=== PATIENT | female | born 1975 | race Caucasian/White ===

== ENCOUNTER 2022-01-05 13:00 | Outpatient (CLI) | payer MEDICAID, SELFPAY | END 2022-01-06 16:20 | disposition home or self-care (01) | LOC: SLEEP 01-13 08:11 | PROVIDERS: Visit Provider Nurse Practitioner Family | DX: R53.83 Other fatigue (principal); F41.9 Anxiety disorder, unspecified; R06.02 Shortness of breath | CPT/HCPCS: G0399 ==

== ENCOUNTER → 2023-07-06 15:49 | Outpatient (BNVA) | payer BC, MEDICAID, SELFPAY | PROVIDERS: PCP Internal Medicine Pulmonary Disease; Referring Provider Nurse Practitioner Family; Visit Provider Specialist | DX: G43.711 Chronic migraine without aura, intractable, with status migrainosus (principal); G37.9 Demyelinating disease of central nervous system, unspecified; M79.7 Fibromyalgia; Z79.899 Other long term (current) drug therapy | CPT/HCPCS: 36415; 82607; 84443; 85651; 86160; 86162; 86235; 86255; 86376; 99205 ==

== ENCOUNTER 2023-08-02 15:28 | Outpatient (CLI) | payer BC, MEDICAID, SELFPAY ==
--- NOTE | 2023-08-02 16:00 | MR_ITS ---
WS: [id number] MRI HEAD WITH CONTRAST TECHNIQUE: Sagittal T1, T2 axial, T2 axial FLAIR, axial susceptibility weighted imaging, axial diffus ion weighted images, and coronal T2 images were obtained. Pre and post-T1 axial and post T1 coronal i mages. ADC and FSPGR images. CLINICAL INFORMATION: G43.711 - Chronic migraine without aura, intractable, wit... COMPARISON: None. FINDINGS: No evidence of restricted diffusion to suggest acute ischemia. Ventricular system and basilar cistern s are patent. Normal posterior fossa. Normal vascular flow voids at the skull base. No extra-axial fluid collections. No evidence of mass o r mass effect. No hemosiderin on the susceptibility weighted images. Mild patchy supratentorial white matter changes in a subcortical and periventricular distribution. A few lesions in a pericallosal distribution. Findings are nonspecific but can be seen with migraine he adaches and demyelinating disease. Additional considerations include hypertension, diabetes, and yaw agen vascular disease. Correlation with laboratory studies and clinical history. No significant atrop hy of the corpus callosum. No enhancing lesions. No other suspicious findings. Paranasal sinuses are well aerated. Mastoid air cells are well aerated. Normal posterior nasopharynx. Normal parapharyngeal fat. Mild mucosal thickening in the ethmoid air cells. Normal optic chiasm and pituitary infundibulum. Temporal lobes and hippocampal formations are normal in appearance. Incidental enhancing capillary telangiectasia within the eva. No abnormal gadolinium enhancement. No enhancing lesions. Normal cavernous sinuses and Meckel's cave. Normal visualized dura l venous sinuses. IMPRESSION: 1. No evidence of restricted diffusion to suggest acute ischemia. 2. Mild patchy supratentorial white matter changes nonspecific in a patient of this age but can be s een with hypertension, diabetes, migraine headaches, and demyelinating disease. Recommend correlation with laboratory studies and clinical history. 3. No significant atrophy of the corpus callosum. 4. No enhancing lesions. 5. No hemosiderin on the susceptibly weighted images. 6. Incidental benign enhancing capillary telangiectasia in the eva. 7. No other suspicious findings.
[2023-08-02] MEDS: gadobenate dimeglumine 20 mL vial IV (16:30)
== END 2023-08-02 15:29 | disposition home or self-care (01) ==
LOC: RAD 15:29
PROVIDERS: PCP Family Medicine; Visit Provider Specialist
DX: G43.711 Chronic migraine without aura, intractable, with status migrainosus (principal); G37.9 Demyelinating disease of central nervous system, unspecified; M79.7 Fibromyalgia
CPT/HCPCS: 70553; A9577

== ENCOUNTER → 2023-09-26 14:30 | Outpatient (BNVA) | payer MEDICAID, SELFPAY | PROVIDERS: PCP Family Medicine; Visit Provider Specialist | DX: G43.711 Chronic migraine without aura, intractable, with status migrainosus (principal); G37.9 Demyelinating disease of central nervous system, unspecified; M79.7 Fibromyalgia; R20.0 Anesthesia of skin; M79.602 Pain in left arm | CPT/HCPCS: 20552; 99214; 99215; J1010; J3490 ==

== ENCOUNTER 2023-09-28 14:54 | Outpatient (CLI) | payer MEDICAID, SELFPAY ==
--- NOTE | 2023-09-28 15:15 | USCV_ITS ---
Mamie Alejandro Age: 48 Gender: F : 1975 Exam Date: 09/28/2023 15:02 Ordering Phys: Xiomara La MD Technologist: [place] [facility] [place]ication: lt arm pain and numbness Risk Factors: Previous Vascular Surgery: Right Brachial BP: / Left Brachial BP: / Right Left Velocity (cm/s) Spectral Plaque Velocity (cm/s) Spectral Plaque Syst/Diast Broadening Syst/Diast Broadening 95.70/ 24.50 Prox CCA 73.60 / 17.50 82.80/ 23.20 Mid CCA 73.60 / 19.00 106.10/25.80 Distal CCA 53.10 / 15.30 61.10/ 20.70 Prox ICA 42.50 / 11.50 75.50/ 30.10 Mid ICA 68.00 / 28.20 71.00/ 28.60 Distal ICA 66.00 / 27.80 138.20 ECA 66.90 0.70 ICA/CCA 1.30 Antegrade Vertebral Antegrade 28.50/ 16.20 cm/s 26.30/ 8.70 cm/s Tri Subclavian Tri 99.00 74.00 FINDINGS Comparison: none available. No significant elevation of systolic or diastolic velocities. Waveforms are normal. Mild calcified plaque in the bifurcations. CONCLUSIONS Bilateral ICA stenosis less than 50%. Mild carotid atherosclerosis. Dr. Roxanna Kingsley DO (Electronically Signed) Final Date: 28 September 2023 15:42 S
== END 2023-09-28 14:55 | disposition home or self-care (01) ==
LOC: RAD 14:54
PROVIDERS: PCP Family Medicine; Visit Provider Specialist
DX: R20.0 Anesthesia of skin (principal); I65.23 Occlusion and stenosis of bilateral carotid arteries; G37.9 Demyelinating disease of central nervous system, unspecified; G43.711 Chronic migraine without aura, intractable, with status migrainosus
CPT/HCPCS: 93880

== ENCOUNTER 2023-11-02 11:47 | Outpatient (CLI) | payer MEDICAID, SELFPAY ==
--- NOTE | 2023-11-02 12:15 | MR_ITS ---
WS: [id number] MRI BRAIN WITH AND WITHOUT CONTRAST HISTORY: G37.9 - Demyelinating disease of central nervous system, ... COMPARISON: 08/02/2023 TECHNIQUE: Multiplanar imaging performed through the brain with MultiHance 17 ml's IV. Diffusion imaging is normal. No acute infarct and no hemorrhage. Reidentified are numerous patchy are as of supratentorial white matter disease in the subcortical and periventricular distribution. Some o f these lesions are in a pericallosal distribution and abutting the corpus callosum. None of these le sions enhance. There does not appear to been a progression since 08/02/2023. Mild ischemic changes in the eva. Normal hippocampal formations. No temporal lobe abnormality. No susceptibility artifacts or prior lacunar infarcts. Ventricles and extra-axial spaces are normal. Clivus and pituitary gland are normal. Normal posterior fossa. No signal abnormality. Postcontrast images are negative for masses or vascular malformations. Dural venous sinuses are normal. Paranasal sinuses: Well aerated with no significant disease. Mastoid air cells: Normal. Calvarium and scalp: Normal. MR/MR head wo/w con [id number] IMPRESSION: 1. No ischemic disease or diffusion abnormalities. 2. White matter changes in the supratentorial brain which do contact the corpu s callosum are similar to the prior study with no progression. Due to the invol vement of the corpus callosum demyelinating disease should be considered. Addit ional etiologies are diabetes, hypertension and migraines. 3. None of the white matter lesions enhance.
--- NOTE | 2023-11-02 13:00 | MR_ITS ---
WS: [id number] MRI CERVICAL SPINE with and without contrast HISTORY: R20.0 - Anesthesia of skin COMPARISON: None available. Technique: Multiplanar, multisequence noncontrast imaging of the cervical spine. Postcontrast sequenc es 17 mL MultiHance. Normal cervical alignment with no compression fracture or significant disc space narrowing. Signal within the cervical cord is normal. No cord atrophy or enlargement. Visualized posterior fossa is unremarkable. Craniocervical junction, C1 and C2 relationship, odontoid process and soft tissues are normal. C2-C3: Normal. C3-C4: Mild osteophytic ridging. No stenosis. C4-C5: Normal. C5-C6: Very slight osteophytic ridging. No stenosis. C6-C7: Small central disc protrusion and small foraminal osteophytes. No stenosis. C7-T1: Normal. No discitis or osteomyelitis. No enhancing cervical cord lesions or demyelinating lesions. Posterior fossa is visualized is negative also. MR/MR cervical spine wo/w [id number] IMPRESSION: 1. Tiny central disc protrusion at C6-7. No stenosis. 2. No significant central or foraminal stenosis in the cervical spine. 3. No evidence for demyelinating disease in the cervical spine. No areas of ab normal enhancement.
[2023-11-02] MEDS: gadobenate dimeglumine 20 mL vial IV (13:04)
== END 2023-11-02 11:48 | disposition home or self-care (01) ==
LOC: RAD 11:48
PROVIDERS: PCP Family Medicine; Visit Provider Specialist
DX: R20.0 Anesthesia of skin (principal); G37.9 Demyelinating disease of central nervous system, unspecified; G43.711 Chronic migraine without aura, intractable, with status migrainosus; R90.82 White matter disease, unspecified
CPT/HCPCS: 70553; 72156; 99215; A9577